=== PATIENT | male | born 1975 | race Caucasian/White ===

== ENCOUNTER 2017-10-21 08:19 | Emergency (ER) | payer MEDICAID ==
[~2017-10-21] VITALS: Ht 188 cm; Wt 190.5 kg
[2017-10-21] MEDS ORDERED: BENZ-16 PO (09:15)
[2017-10-21] MEDS ORDERED: AZIT250T PO (09:15)
[2017-10-21 09:25] VITALS: BP 159/85
== END 2017-10-21 09:26 | disposition home or self-care (01) ==
LOC: ER 08:20
DX: J20.9 Acute bronchitis, unspecified (principal); Z88.1 Allergy status to other antibiotic agents
CPT/HCPCS: 99283

== ENCOUNTER 2021-10-04 11:10 | Outpatient (CLI) | payer MEDICAID ==
[~2021-10-04 11:10] MED LIST: AZIT250T PO
== END 2021-10-04 23:59 | disposition home or self-care (01) ==
LOC: CARD DIAG 11:10
PROVIDERS: ATTEND Physician Assistant
DX: I05.8 Other rheumatic mitral valve diseases (principal); R60.0 Localized edema; E11.9 Type 2 diabetes mellitus without complications
CPT/HCPCS: 93306

== ENCOUNTER 2023-03-31 10:01 | Day surgery (SDC) | payer MEDICAID ==
[2023-03-28 09:53] LABS: BASOPHILS # (AUTO) 0.1 X10'3 (0-0.2); BASOPHILS % (AUTO) 0.9 % (0-1); EOSINOPHILS # (AUTO) 0.2 X10'3 (0-0.9); EOSINOPHILS % (AUTO) 2.8 % (0-6); HEMATOCRIT 40.3 % (42.0-52.0); HEMOGLOBIN 13.3 g/dl (14.0-17.9); LYMPHOCYTES % (AUTO) 25.6 % (21-51); MEAN CORPUSCULAR HEMOGLOBIN 26.2 PG (27.0-31.0); MEAN CORPUSCULAR HGB CONC 33.1 g/dL (33.0-36.5); MEAN CORPUSCULAR VOLUME 79.4 FL (78-98); MEAN PLATELET VOLUME 7.8 FL (7.4-10.4); MONOCYTES # (AUTO) 0.5 X10'3 (0-0.9); MONOCYTES % (AUTO) 6.9 % (2-12); NEUTROPHILS # (AUTO) 4.9 X10'3 (1.8-7.7); NEUTROPHILS % (AUTO) 63.8 % (42-75); PLATELET COUNT 388 X10'3 (140-440); RED BLOOD COUNT 5.08 X10'6 (4.70-6.10); RED CELL DISTRIBUTION WIDTH 14.7 % (11.5-14.5); WHITE BLOOD COUNT 7.7 X10'3 (4.5-11.0)
[2023-03-28 10:05] LABS: APTT 29 SECONDS (22-32)
[2023-03-28 10:06] LABS: ALBUMIN 3.5 G/DL (3.4-5.0); ANION GAP 11 (8-16); BLOOD UREA NITROGEN 11 MG/DL (7-18); BUN/CREATININE RATIO 11.2 (10.0-20.0); CALCIUM 8.9 MG/DL (8.5-10.1); CHLORIDE 100 MMOL/L (99-107); CHOL/HDL RATIO 3.5 (0.00-4.99); CHOLESTEROL 155 MG/DL (0-200); CREATININE 0.98 MG/DL (0.60-1.10); GLUCOSE 132 MG/DL (70-104); HDL CHOLESTEROL 44 MG/DL (35-60); LDL CHOLESTEROL 86 MG/DL (50-100); POTASSIUM 4.2 MMOL/L (3.5-5.1); SODIUM 138 MMOL/L (135-145); TOTAL CARBON DIOXIDE 27.5 MMOL/L (24-32); TRIGLYCERIDES 227 MG/DL (20-135); eGFR 81 ML/MIN
[~2023-03-31] VITALS: Ht 190.5 cm; Wt 210.8 kg
[2023-03-31] VITALS (8 sets, daily range): BP systolic 113–165; BP diastolic 56–98; PULSE 85–89; RESP 14–18; TEMP 98; O2SAT 94–99
[2023-03-31] MEDS ORDERED: normal saline 1,000 ML IV SCH (10:30)
[2023-03-31] MEDS ORDERED: diphenhydrAMINE 25mg capsule PO PRN (10:30)
[2023-03-31] MEDS ORDERED: LORazepam 0.5 MG tablet PO PRN (10:30)
[2023-03-31] MEDS ORDERED: sodium bicarbonate 1meq/ml syr 150 ML in dextrose 5%-water 1,000 ML IV ONE (10:30)
[2023-03-31] MEDS ORDERED: METF-438 PO (10:35)
[2023-03-31] MEDS ORDERED: ASPI-1397 PO (10:35)
[2023-03-31] MEDS ORDERED: FURO20TA4 PO (10:35)
[2023-03-31] MEDS ORDERED: ENAL-79 PO (10:35)
[2023-03-31] MEDS ORDERED: POTA-192 PO (10:35)
[2023-03-31] MEDS ORDERED: BACL10TA2 PO (10:35)
[2023-03-31] MEDS ORDERED: verapamil 2.5 mg/ml inj IV ONE (11:27)
[2023-03-31] MEDS ORDERED: iohexol 350MG/ML 100ml bottle IV ONE (11:27)
[2023-03-31] MEDS ORDERED: fentaNYL/PF 50MCG/1 ML 2ML syringe ONE (11:27)
[2023-03-31] MEDS ORDERED: nitroGLYCERIN-Tridil 50MG/D5W 250 ML IV ONE (11:27)
[2023-03-31] MEDS ORDERED: heparin 1,000unit/ml 10ml vial 10 ML ONE (11:27)
[2023-03-31] MEDS ORDERED: LIDOcaine 1% (10mg/ml) 2ml vial ONE (11:27)
[2023-03-31] MEDS ORDERED: midazolam 1 mg/ML 2ml injection ONE (11:27)
[2023-03-31] MEDS ORDERED: HYDROcodone/acetaminophen 10/325mg tab PO PRN (14:00)
[2023-03-31] MEDS ORDERED: HYDROcodone/acetaminophen 5mg/325mg tablet PO PRN (14:00)
== END 2023-03-31 15:40 | disposition home or self-care (01) ==
LOC: SSTAY O 10:01
PROVIDERS: ATTEND Student in an Organized Health Care Education/Training Program
DX: R94.39 Abnormal result of other cardiovascular function study (principal); I25.10 Atherosclerotic heart disease of native coronary artery without angina pectoris; I10 Essential (primary) hypertension; E78.5 Hyperlipidemia, unspecified; E11.9 Type 2 diabetes mellitus without complications; G47.33 Obstructive sleep apnea (adult) (pediatric); E66.9 Obesity, unspecified; Z68.43 Body mass index [BMI] 50.0-59.9, adult; Z79.84 Long term (current) use of oral hypoglycemic drugs; Z79.82 Long term (current) use of aspirin; Z79.899 Other long term (current) drug therapy; Z79.01 Long term (current) use of anticoagulants; Z88.0 Allergy status to penicillin
CPT/HCPCS: 36415; 80048; 80061; 82948; 85025; 85610; 85730; 93005; 93458; 99152; 99153; J1644; J2250; J3010; J3490; J7030; Q0163; Q9967; A6258; A6449; C1894

== ENCOUNTER 2025-05-29 11:38 | Inpatient (IN) | payer MEDICAID ==
[~2025-05-29] VITALS: Ht 188 cm; Wt 214.0 kg
[~2025-05-29 11:38] MED LIST changes: +ASPI-1397 PO; -AZIT250T PO; +ENAL-79 PO; +FURO20TA4 PO; +METF-438 PO; +POTA-192 PO
--- NOTE | 2025-05-29 11:57 | Physician Documentation ---
History of Present Illness ~ Chief Complaint: Wound Stated Complaint: BILATERAL FOOT SWELLING Time Seen by MD: 11:56 Mode of Arrival: EMS HPI This is a 50-year-old male with a history of MRSA, obstructive sleep apnea, diabetes, hypertension and morbid obesity presenting with fever, chills, blistering and then scabbing rash and left foot pain. He developed shaking chills four days ago followed by nausea and vomiting and then a rash with blisters on his left calf symptom onset May 11. He has seen his primary care provider, and is currently in the midst of a course of doxycycline x1 week. He has been applying topical mupirocin. He denies chest pain, diarrhea, abd pain, but admits to chronic dyspnea due to his weight. He admits that he has felt quite unwell for several days but was reluctant to come to the ER. His daughter encouraged him to call 911 today and he was brought by EMS. His main complaint today is inability to bear weight on left foot due to significant worsening of pain when he tries to do so. Tetanus within 5 years?: Yes Medication Reconciliation Allergies: Coded Allergies: amoxicillin (Unverified Allergy, Unknown, rash and can't breath, 05/29/25) Scheduled Aspirin (Aspirin EC), 1 TAB PO DAILY, (Reported) Enalapril Maleate (Enalapril Maleate), 1 TAB PO DAILY, (Reported) Furosemide (Furosemide), 1 TAB PO BID, (Reported) Metformin HCl (Metformin HCl), 1 TAB PO BID, (Reported) Potassium Chloride (Klor-Con), 1 TAB PO DAILY, (Reported) Past Medical History Past Medical History: No Pertinent History Past Surgical History: noncontributory Lives In: Home Occupation: employed Review of Systems ROS As stated above in the HPI, otherwise all systems are reviewed and negative. Physical Exam Vital Signs: Temperature: 97.5, Source: Oral, Heart Rate: 92, Respiratory Rate: 18, BP: 159/75, Pulse Oximetry: 97, Weight: 214.000 Oxygen Flow Rate: 0 Physical Exam General: Alert, no apparent distress. Neck: Full range of motion. Respiratory: Lungs clear, no respiratory distress. Chest: No accessory muscle use. Cardiovascular: Regular rate and rhythm, no murmurs. Gastrointestinal: Soft, nontender, nondistended. Bowels sounds present. Extremities: Reduced/painful ROM left ankle. TTP of left medial malleolus without noted deformity, open areas, or erythema to this site. Neurologic: Oriented x4. Psychiatric: Normal mood and affect. Skin: Normal color, warm and dry. Edema to BLE, worse on left. Erythema with scabbing up left inside calf and thigh. Progress Results/Orders Results/Orders Orders - MADDISON XIONG PRACTICE MANAGEMENT CONSULTANT Urinalysis, Cult If Indicated (05/29/25 12:04) Culture Blood (05/29/25 12:04) Chest,Single View (05/29/25 12:04) * Iv Access / Saline Lock * (05/29/25 12:04) Foot, Complete (3vw Min) (05/29/25 12:14) Tib/Fib (05/29/25 12:14) 75g Carb Controlled (05/29/25 Dinner) Ceftriaxone/P1d-Ncdnzeax 1gm (Rocephin 1 (05/29/25 13:30) Page Hospitalist (05/29/25 13:29) Vancomycin/Ns 1 Gm Add-Lewellen (Vancomyc (05/29/25 14:00) Non Formulary (05/30/25 13:30) Vancomycin,Trough (05/30/25 13:30) Completed Orders - MADDISON XOING PRACTICE MANAGEMENT CONSULTANT Electrocardiogram (05/29/25 12:04) Cbc/Diff (05/29/25 12:04) MG (05/29/25 12:04) Chest,Single View (05/29/25 12:04) Procalcitonin (05/29/25 12:04) Lacticsepsis (05/29/25 12:04) CMP (05/29/25 12:04) Hs Troponin I W Calculations (05/29/25 12:04) PBNP (05/29/25 12:04) C-Reactive Protein (05/29/25 12:04) Normal Saline 1000ml (0.9% Sodium Chlori (05/29/25 12:05) Foot, Complete (3vw Min) (05/29/25 12:14) Tib/Fib (05/29/25 12:14) ESR (05/29/25 12:15) Vancomycin*Pharmacy To Dose* (Vancomycin (05/29/25 13:30) Medications Received in ER Medications (Trade) Dose Ordered Sig/Heather Route PRN Reason Start Time Stop Time Status Last Admin Dose Admin Sodium Chloride 1,000 ml @ 1,000 mls/hr ONCE ONCE IV 05/29/25 12:05 05/29/25 13:04 DC 05/29/25 12:36 1,000 MLS/HR Vital Signs 05/29/25 05/29/25 05/29/25 11:41 11:50 12:39 Temp 97.5 Pulse 92 97 Resp 18 18 B/P (MAP) 159/75 147/80 (102) Pulse Ox 97 100 O2 Flow Rate 0 0 Laboratory Tests Test 05/29/25 12:30 White Blood Count 10.2 Red Blood Count 3.63 L Hemoglobin 10.1 L Hematocrit 30.0 L Mean Corpuscular Volume 82.6 Mean Corpuscular Hemoglobin 27.9 Mean Corpuscular Hemoglobin Concent 33.7 Red Cell Distribution Width 15.1 H Platelet Count 529 H Mean Platelet Volume 7.6 Neutrophils (%) (Auto) 76.3 H Lymphocytes (%) (Auto) 14.1 L Monocytes (%) (Auto) 8.7 Eosinophils (%) (Auto) 0.2 Basophils (%) (Auto) 0.7 Neutrophils # (Auto) 7.8 H Lymphocytes # (Auto) 1.4 Monocytes # (Auto) 0.9 Eosinophils # (Auto) 0.0 Basophils # (Auto) 0.1 CBC Comment Erythrocyte Sedimentation Rate 106 H Sodium Level 132 L Potassium Level 4.1 Chloride Level 98 L Carbon Dioxide Level 28.3 Anion Gap 6 L Blood Urea Nitrogen 9 Creatinine 0.92 Estimated GFR/1.73 m2 86 BUN/Creatinine Ratio 9.8 L Glucose Level 122 H Lactic Acid Level 0.9 Calcium Level 8.6 Magnesium Level 1.7 Total Bilirubin 0.7 Aspartate Amino Transf (AST/SGOT) 22 Alanine Aminotransferase (ALT/SGPT) 23 Alkaline Phosphatase 62 Troponin I High Sensitivity 7 C-Reactive Protein 24.99 H Pro-B-Type Natriuretic Peptide 548 H Total Protein 9.4 H Albumin 2.1 L Globulin 7.3 H Albumin/Globulin Ratio 0.3 L Procalcitonin 0.10 Chemistry Comments EKG/XRAY/CT/US/VASC/MRI EKG : Additional Comment 1139 EKG interpreted to show RSR rate of 94. No ectopy. No St segment elevation.Occasional PAC. QTC 438 ms. Bone/Soft Tissue X-Ray (Spine) : Additional Comment [address] [facility] [address] DIAGNOSTIC RADIOLOGY Patient: SEDRICK PRIEST Medical Record: [id number] [facility] : 1975, Age: 50 Sex: Male Location: ER Patient Status: [facility] ER Service Date/Time: 05/29/25/ 1214 Ordering Physician: MADDISON XIONG NP Exam: TIB/FIB 2 VWS DI TIB/FIB 2 VWS, INDICATION: cannot bear weight, swelling, infection TECHNICAL DATA: Frontal and lateral views were obtained of the left leg. COMPARISON: None FINDINGS: There is no osseous abnormality. Soft tissues are normal. IMPRESSION: No acute fracture or dislocation. Electronically Signed by:AZEEM LUNSFORD MD Date & Time: 05/29/251302 Dictated by: AZEEM LUNSFORD MD Dictation date and time: 05/29/25 130 Primary Care Provider: NO PRIMARY CARE PROVIDER cc: MADDISON XIONG PRACTICE MANAGEMENT CONSULTANT ~ Bone/Soft Tissue X-Ray (Ext.) : Additional Comment [address] [facility] [address] [facility]STIC [facility]Y Patient: SEDRICK PRIEST Medical Record: [id number] [facility] : 1975, Age: 50 Sex: Male Location: ER Patient Status: REG ER Service Date/Time: 05/29/25/ 1214 Ordering Physician: MADDISON XIONG PRACTICE MANAGEMENT CONSULTANT Exam: FOOT, COMPLETE (3VW MIN) DI FOOT, COMPLETE (3VW MIN), INDICATION: cannot bear weight, swelling, infection TECHNICAL DATA: Frontal, oblique and lateral views were obtained of the left foot. COMPARISON: DI TIB/FIB 2 VWS on DOS: 05/29/25 FINDINGS: No fracture is identified. Joint spaces are maintained. Alignment is anatomic. The hallux sesamoids appear normal. Soft tissues are swollen. IMPRESSION: No acute fracture or dislocation of the left foot. Electronically Signed by:AZEEM LUNSFORD MD Date & Time: 05/29/251307 Dictated by: AZEEM LUNSFORD MD Dictation date and time: 05/29/251307 Primary Care Provider: NO PRIMARY CARE PROVIDER cc: MADDISON XIONG PRACTICE MANAGEMENT CONSULTANT ~ [address] [address] DIAGNOSTIC RADIOLOGY Patient: SEDRICK PRIEST Medical Record: [id number] [facility] : 1975, Age: 50 Sex: Male Location: ER Patient Status: REG ER Service Date/Time: 05/29/25/ 1204 Ordering Physician: MADDISON XIONG PRACTICE MANAGEMENT CONSULTANT Exam: CHEST,SINGLE VIEW DI CHEST,SINGLE VIEW, HISTORY: SEPSIS COMPARISON: None None TECHNICAL DATA: 1 view of the chest was obtained. FINDINGS: Lines and tubes: None Cardiomediastinal silhouette: prominent Pulmonary vasculature: promiennt Lung expansion: normal Lung airspace: normal Lung interstitium: normal Pleura: normal Pneumothorax: no Bones: Unremarkable Other: no IMPRESSION: Cardiomegaly with pulmonary vascular congestion. Electronically Signed by:AZEEM LUNSFORD MD Date & Time: 05/29/25 1307 Dictated by: AZEEM LUNSFORD MD Dictation date and time: 05/29/25 1246 Primary Care Provider: NO PRIMARY CARE PROVIDER cc: MADDISON XIONG PRACTICE MANAGEMENT CONSULTANT ~ Medical Decision Making Differential Dx:Considerations: Include: Abscess, Cellulitis Additional Comment Differentials: Cellulitis/erysipelas of LLE, diabetic soft tissue/foot infection, Venous stasis dermatitis, DVT, Charcot arthropathy, necrotizing fasciitis of LLE, osteomyelitis of left foot/tibia, septic arthritis of left foot/ankle are all considered. Plan: Labs including septic and inflammatory markers, blood cultures, xray of LLE as initial workup. NS bolus x one liter. Initiate antibiotics after labs are drawn. Vancomycin and Cefazolin initiated. No evidence of fractures or dislocations on xrays. CRP markedly elevated. No lactic acidosis, procalcitonin normal. Hospitalist consulted to evaluate for admission. Departure Time of Disposition: 13:55 Disposition: HOME / SELF CARE / HOMELESS Impression: Primary Impression: Wound cellulitis Additional Impression: Hyponatremia Referrals: NO PRIMARY CARE PROVIDER (PCP) Signature Scribe Signature: x Attestation: The note accurately reflects work and decisions made by me.Maddison Melissa NP 05/29/25 12:10 MADDISON XIONG NP May 29, 2025 11:57
--- NOTE | 2025-05-29 12:06 | ELECTROCARDIOGRAPH REPORT ---
[facility] Test Date: 2025-05-29 Test Time: 11:39:29 Pat Name: SEDRICK PRIEST Department: EMERGENCY ROOM Room: ORTHO [facility] Gender: M Well Blower: [place] : 1975 Requested By: ACACIA XIONG Order Number: [id number] Reading MD: Dr. Alex [facility] Measurements Intervals Brandon Rate: 94 P: 27 OK: 180 QRS: 64 QRSD: 85 T: 36 QT: 350 QTc: 438 Interpretive Statements Sinus rhythm Multiple premature complexes, vent & supraven Low voltage, precordial leads Electronically Signed On 06-02-2025 21:45:[address] Alex [facility] Please click the below link to view image of tracing.
[2025-05-29] MEDS: normal saline 1000ml 1,000 ML IV ONE (12:36)
[2025-05-29 12:49] LABS: MEAN PLATELET VOLUME 7.6 FL (7.4-10.4); RED CELL DISTRIBUTION WIDTH 15.1 % (11.5-14.5)
--- NOTE | 2025-05-29 13:06 | RADIOLOGY REPORT ---
DI TIB/FIB 2 VWS, INDICATION: cannot bear weight, swelling, infection TECHNICAL DATA: Frontal and lateral views were obtained of the left leg. COMPARISON: None FINDINGS: There is no osseous abnormality. Soft tissues are normal. IMPRESSION: No acute fracture or dislocation.
--- NOTE | 2025-05-29 13:09 | RADIOLOGY REPORT ---
DI CHEST,SINGLE VIEW, HISTORY: SEPSIS COMPARISON: None None TECHNICAL DATA: 1 view of the chest was obtained. FINDINGS: Lines and tubes: None Cardiomediastinal silhouette: prominent Pulmonary vasculature: promiennt Lung expansion: normal Lung airspace: normal Lung interstitium: normal Pleura: normal Pneumothorax: no Bones: Unremarkable Other: no IMPRESSION: Cardiomegaly with pulmonary vascular congestion.
--- NOTE | 2025-05-29 13:10 | RADIOLOGY REPORT ---
DI FOOT, COMPLETE (3VW MIN), INDICATION: cannot bear weight, swelling, infection TECHNICAL DATA: Frontal, oblique and lateral views were obtained of the left foot. COMPARISON: DI TIB/FIB 2 VWS on DOS: 05/29/25 FINDINGS: No fracture is identified. Joint spaces are maintained. Alignment is anatomic. The hallux sesamoids appear normal. Soft tissues are swollen. IMPRESSION: No acute fracture or dislocation of the left foot.
[2025-05-29 13:14] LABS: CREATININE 0.92 MG/DL (0.60-1.10); PRO BRAIN NATRIURETIC PEPTIDE 548 PG/ML (0-125); TOTAL CARBON DIOXIDE 28.3 MMOL/L (24-32); eCRCL 109 ML/MIN; eGFR 86 ML/MIN
--- NOTE | 2025-05-29 13:43 | HISTORY AND PHYSICAL ---
History & Physical Providers to Chief complaint, left lower extremity pain swelling redness ~ History of Present Illness Reason for Admit\Complaint: As above History of Present Illness This is a 50-year-old male with a history of MRSA, obstructive sleep apnea, on CPAP at home, diabetes, on p.o. medications, hypertension and morbid obesity BMI 60, history of anemia hemoglobin 10.1, thrombocytosis, CHF ejection fraction 70% 2020, hypoalbuminemia, gait disorder unable to ambulate independently, presented today to emergency department chief complaint left lower extremity pain redness swelling; in addition this is the patient who years presenting with fever, chills, blistering and then scabbing rash and left foot pain. He developed shaking chills four days ago followed by nausea and vomiting and then a rash with blisters on his left calf symptom onset May 11. He has seen his primary care provider, and is currently in the midst of a course of doxycycline x1 week. He has been applying topical mupirocin. He denies chest pain, diarrhea, abd pain, but admits to chronic dyspnea due to his weight. He admits that he has felt quite unwell for several days but was reluctant to come to the ER. His daughter encouraged him to call 911 today and he was brought by EMS. His main complaint today is inability to bear weight on left foot due to significant worsening of pain when he tries to do so. In emergency department patient was evaluated by medical provider, was diagnosed with left lower extremity cellulitis, decision was made to admit patient for further evaluation and treatment, patient was started on IV antibiotics. No additional complaint or concern Allergies: Coded Allergies: amoxicillin (Unverified Allergy, Unknown, rash and can't breath, 05/29/25) Active prescriptions I reviewed reconciled Home Medications Home Medications Active Reported Metformin HCl 1,000 Mg Tablet 1 Tab PO BID Enalapril Maleate 20 Mg Tablet 1 Tab PO DAILY Aspirin EC (Aspirin) 81 Mg Tablet.dr 1 Tab PO DAILY Klor-Con (Potassium Chloride) 10 Meq Tab.prt.sr 1 Tab PO DAILY Furosemide 20 Mg Tablet 1 Tab PO BID Past Medical History Past Medical History As in HPI Past Surgical History Surgical History Comment As in HPI Past Social History Social History Comment Deny illicit drug abuse tobacco alcohol use live with the family good social support Health Maintenance Health Maintenance Noncontributory ROS ROS Constitutional : no fever , no chills, or weakness. No diaphoresis. Allergic/Immunologic, no lymphadenopathy, no hives, no skin eruptions. Eyes, no recent visual changes, no eye pain, no photophobia. Ears, nose, mouth, throat, no sore throat, no nosebleed, no ear pain. Cardiovascular, no palpitations, skipped beats, chest pain, no peripheral edema, Respiratory, no dyspnea, orthopnea, cough, hemoptysis, chest wall pain. Gastrointestinal, no abdominal pain, nausea, vomiting, constipation or diarrhea. : no dysuria, hematuria, pelvic pain, urethral d/c. Endocrine, no polyuria, polydipsia, recent unintentional weight gain or loss. Hematologic/Lymphatic, no petechiae, no enlarged lymph nodes, no bone pain. Integumentary, no rash, no skin lesions, Musculoskeletal, no muscle aches, or pain, no muscle cramps, positive for left lower extremity redness pain swelling Neurological, no dizziness, no headache, no syncope, no paresthesia. Psychiatric, no delusions, visual hallucinations, or hearing hallucinations. ROS - in rest is as in HPI. Exam Vitals: Vital Signs Date Time Temp Pulse Resp B/P (MAP) Pulse Ox O2 Delivery O2 Flow Rate FiO2 05/29/25 12:39 97 18 147/80 (102) 100 0 05/29/25 11:41 97.5 Vital signs, stable ,afebrile. Pulse Oximetry reflects adequate oxygenation. BMI is 60, weight 214 kg General: well developed, well nourished. Awake , alert, and oriented x4, resting comfortably in the bed, in no acute distress . Skin: Warm, dry, no pallor, no rash or petechiae. HEENT: Atraumatic, normocephalic, EOMI, anicteric sclera B; pink conjunctiva; PERRLA, normal oropharynx, moist oral and nasal mucosa. Tympanic membrane , nose , throat clear. Neck: Trachea midline. Supple, full range of motion, no JVD, bruit , hepatojugular reflex , lymphadenopathy or masses, or other lesions Cardiac: Regular rhythm, regular rate no murmurs, rubs, or gallops. Normal S1 and S2, no S3 noticed. PMI is normal. Respiratory: Equal breath sounds bilaterally, no tachypnea; lungs clear to auscultation bilaterally, no wheezing ,rub or rales, or crackles. Chest wall is symmetric and without deformity. No signs of trauma. Chest wall is nontender. No signs of respiratory distress. Resonance is normal upon percussion bilaterally. Gastrointestinal: Abdomen symmetric, non-distended, soft, non-tender, normal bowel sounds x4 quadrant, normoactive, no hepatosplenomegaly , no masses , no bruit, no flank pain bilaterally. No voluntary guarding, rebound, or rigidity. No tenderness to percussion. No pulsatile masses. Equal femoral pulses. No Giraldo's sign or McBurney point tenderness. Back; no CVA tenderness bilaterally, no deformities. Neck and back are without deformity as well. No tenderness noted on palpation of the spinous processes. Spinous processes are midline. Cervical, thoracic, and lumbar paraspinal muscles are not tender and are without spasm. : normal external genitalia, without lesions, swelling, masses or tenderness. Musculoskeletal: Extremities, normal range of motion, non-tender, muscle strength 5/5 x 4. Negative Homans signs bilaterally on lower extremity. Distal pulses full symmetrical, no clubbing, cyanosis , edema. Locally, left lower extremity multiple erosive lesions brown in color, skin red hot to touch CVA tender to palpation, no subcutaneous emphysema or crepitation, neurovascular grossly intact, unable to ambulate independently secondary to severe pain left lower extremity. Neurological: Speech is clear, alert, and oriented x 4. No motor or sensory deficit, deep tendon reflexes normal, cerebellar intact. Cranial nerves II-XII intact. Psych: Alert and or appropriate, normal affect. Vascular: Good distal pulses, which are equal x4; capillary refill less than 2 seconds. Lymphatic, no lymphadenopathy. Diagnostic Data Last Recorded Lab Results: 05/29/25 1230 05/29/25 1230 Advance Care Planning Advanced Care plannin - 30 Minutes Additional Plan Assessment Left lower extremity cellulitis Left lower extremity erosive dermatitis Hyponatremia Morbid obesity BMI 60 Thrombocytosis Anemia Hemoglobin 10.1 CHF in exacerbation diastolic, ejection fraction 70% 2021 Obstructive sleep apnea on home CPAP History of MRSA Gait disorder, unable to ambulate independent Diabetes mellitus type 2 poor control Hypertension fair control, hypoalbuminemia, chronic kidney disease Plan IV antibiotics, fluids keep patient well hydrated euvolemic Replace electrolytes PT evaluation and treatment Wound care consult Hyperglycemia sliding scale Additional lab work pending I reconciled home medications DVT gastropathy prophylaxis addressed Sepsis Screening Reassessment Date: May 29, 2025 Date of Service: May 29, 2025 Billing Provider: ZHANG GARCIA MD Common Visit Codes: [id number] INP/OBS CARE (HIGH) Secondary Visit Codes: [id number] CARE PLAN ADDL 30MIN ZHANG GARCIA MD May 29, 2025 13:43
[2025-05-29] MEDS: CefTRIAXone/D5W-Rocephin 1gm 50 ML IV ONE (14:04)
[2025-05-29] MEDS ORDERED: magnesium Cl slow-release 64mg tablet PO PRN (14:10)
[2025-05-29] MEDS ORDERED: mag hydrox/Alum hydrox/simeth 30ml oral suspension PO PRN (14:10)
[2025-05-29] MEDS ORDERED: bisacodyl 10mg suppository rectal RC PRN (14:10)
[2025-05-29] MEDS ORDERED: magnesium sulf-water 2g/50mL 50 ML IV PRN (14:10)
[2025-05-29] MEDS ORDERED: ondansetron/PF 4mg/2ml inj IV PRN (14:10)
[2025-05-29] MEDS ORDERED: potassium Cl 40MEQ/1/2NS 520ml 520 ML IV PRN (14:10)
[2025-05-29] MEDS ORDERED: morphine 4 MG/ML inj SYRINge IV PRN ×2 (14:10)
[2025-05-29] MEDS ORDERED: HYDROcodone/acetaminophen 5mg/325mg tablet PO PRN (14:10)
[2025-05-29] MEDS ORDERED: magnesium hydroxide 30ml (MOM) UD suspension PO PRN (14:10)
[2025-05-29] MEDS ORDERED: potassium Cl 20 mEq SR tablet PO PRN ×2 (14:10)
[2025-05-29] MEDS ORDERED: ondansetron 4mg rapidly disintigrating tab PO PRN (14:10)
[2025-05-29] MEDS ORDERED: magnesium sulf-water 4G/100mL 100 ML IV PRN (14:10)
[2025-05-29] MEDS ORDERED: acetaminophen 650mg rectal suppository RC PRN (14:10)
[2025-05-29] MEDS: vancomycin/NS 1 GM ADD-VANTAGE 250 ML IV SCH (14:22)
[2025-05-29] MEDS: normal saline 1000ml 1,000 ML IV SCH (14:23)
[2025-05-29] MEDS ORDERED: glucagon, human recombinant 1mg kit SUBCUT PRN (14:30)
[2025-05-29] MEDS ORDERED: dextrose 50%-water 50ml dispensing syringe IV PRN ×2 (14:30)
[2025-05-29] MEDS ORDERED: DEXTROSE 15 GM of carb/4 tabs (each vial/BOTTLE has 4 tablets) PO PRN ×2 (14:30)
[2025-05-29 14:39] LABS: APTT 29 SECONDS (22-32); INR 1.2 INR
[2025-05-29 14:56] LABS: PHOSPHORUS 3.5 MG/DL (2.3-4.5)
[2025-05-29 15:19] LABS: LEUKOCYTE ESTERASE ,URINE NEGATIVE (Neg); NITRITES, URINE NEGATIVE (Neg); OCCULT BLOOD,URINE MODERATE (Neg)
[2025-05-29 15:22] LABS: UA COLLECTION TYPE NON-SPECIFIED
[2025-05-29 15:28] LABS: MUCUS STRANDS MODERATE /LPF (Neg); SQUAMOUS EPITHELIAL CELL,UR MODERATE /LPF (FEW)
[2025-05-29] MEDS ORDERED: METO-395 PO (15:33)
[2025-05-29] MEDS ORDERED: TIRZ5PEN3 INJ (15:33)
[2025-05-29] MEDS ORDERED: DOXY-460 PO (15:33)
[2025-05-29] MEDS ORDERED: POTA PO (15:33)
[2025-05-29] MEDS ORDERED: FLUT1BLS3 PO (15:33)
[2025-05-29] MEDS: INSULIN LISPRO 100 UNIT/ML INSULN.PEN MULTI-DOSE SQ SCH (17:00)
[2025-05-29] MEDS: heparin, porcine 5000 units/ml vial SQ SCH (17:27)
[2025-05-29 19:00] VITALS: RESP 16; O2SAT 97
[2025-05-29] MEDS ORDERED: VANCOMYCIN 1GM 200ML H20 (PEG) 200 ML IV SCH (20:00)
[2025-05-29] MEDS: docusate sod 100mg capsule PO SCH (20:00)
[2025-05-29] MEDS: K and/or MAG REPLACEMENT MC SCH (20:00)
[2025-05-29] MEDS: insulin glargine (Lantus) pen - multi-dose SQ SCH (21:00)
[2025-05-29 22:00] VITALS: BP 132/67; PULSE 104; TEMP 97.3; O2SAT 95
[2025-05-29 22:27] VITALS: PULSE 108; RESP 18; O2SAT 96
[2025-05-30] VITALS (9 sets, daily range): BP systolic 121–144; BP diastolic 55–75; PULSE 84–104; RESP 16–26; TEMP 97.3–98.3; O2SAT 94–99
[2025-05-30] MEDS: HYDROcodone/acetaminophen 10/325mg tab PO PRN (00:06)
[2025-05-30 06:19] LABS: MEAN PLATELET VOLUME 7.7 FL (7.4-10.4); RED CELL DISTRIBUTION WIDTH 15.2 % (11.5-14.5)
[2025-05-30 06:58] LABS: CHOL/HDL RATIO 2.9 (0.00-4.99); CREATININE 0.94 MG/DL (0.60-1.10); LDL CHOLESTEROL 66 MG/DL (50-100); TOTAL CARBON DIOXIDE 29.1 MMOL/L (24-32); eCRCL 107 ML/MIN; eGFR 84 ML/MIN
[2025-05-30] MEDS: CefTRIAXone 2gm/D5W 50ml BAG 50 ML IV SCH (08:29)
[2025-05-30] MEDS: pantoprazole 40mg Tablet.DR PO SCH (08:30)
[2025-05-30] MEDS: VANCOMYCIN LEVEL IV ONE (13:30)
[2025-05-30] MEDS ORDERED: POTA8CAP20 PO (15:26)
[2025-05-30] MEDS: VANCOmycin 1250MG/NS 250ml Bag 250 ML IV SCH (17:28)
--- NOTE | 2025-05-30 18:17 | PROGRESS NOTE ---
Daily Progress Note Providers to CC ~ feels better today less pain redness redness in the left lower extremity Central Line/PICC still needed: No Arango-Non Protocol Arango Indications Met/Not Met: F/C Indications Not Met Antibiotic Timeout Antibiotic Ordered?: Yes MRSA Education MRSA Education Provided to pt: Yes Subjective As above Objective Vital Signs Date Time Temp Pulse Resp B/P (MAP) Pulse Ox O2 Delivery O2 Flow Rate FiO2 05/30/25 11:49 18 95 Room Air 05/30/25 10:00 97.8 100 121/55 (77) 05/30/25 08:00 0.0 05/30/25 04:04 21 Vital signs, stable ,afebrile. Pulse Oximetry reflects adequate oxygenation. General: well developed, well nourished. Awake , alert, and oriented x4, resting comfortably in the bed, in no acute distress . Skin: Warm, dry, no pallor, no rash or petechiae. HEENT: Atraumatic, normocephalic, EOMI, anicteric sclera B; pink conjunctiva; PERRLA, normal oropharynx, moist oral and nasal mucosa. Tympanic membrane , nose , throat clear. Neck: Trachea midline. Supple, full range of motion, no JVD, bruit , hepatojugular reflex , lymphadenopathy or masses, or other lesions Cardiac: Regular rhythm, regular rate no murmurs, rubs, or gallops. Normal S1 and S2, no S3 noticed. PMI is normal. Respiratory: Equal breath sounds bilaterally, no tachypnea; lungs clear to auscultation bilaterally, no wheezing ,rub or rales, or crackles. Chest wall is symmetric and without deformity. No signs of trauma. Chest wall is nontender. No signs of respiratory distress. Resonance is normal upon percussion bilaterally. Gastrointestinal: Abdomen symmetric, non-distended, soft, non-tender, normal bowel sounds x4 quadrant, normoactive, no hepatosplenomegaly , no masses , no bruit, no flank pain bilaterally. No voluntary guarding, rebound, or rigidity. No tenderness to percussion. No pulsatile masses. Equal femoral pulses. No Giraldo's sign or McBurney point tenderness. Back; no CVA tenderness bilaterally, no deformities. Neck and back are without deformity as well. No tenderness noted on palpation of the spinous processes. Spinous processes are midline. Cervical, thoracic, and lumbar paraspinal muscles are not tender and are without spasm. : normal external genitalia, without lesions, swelling, masses or tenderness. Musculoskeletal: Extremities, normal range of motion, non-tender, muscle strength 5/5 x 4. Negative Homans signs bilaterally on lower extremity. Distal pulses full symmetrical, no clubbing, cyanosis , edema. Locally, left lower leg plus three edema red tender to palpation with scattered covering crusts Neurological: Speech is clear, alert, and oriented x 4. No motor or sensory deficit, deep tendon reflexes normal, cerebellar intact. Cranial nerves II-XII intact. Psych: Alert and or appropriate, normal affect. Vascular: Good distal pulses, which are equal x4; capillary refill less than 2 seconds. Lymphatic, no lymphadenopathy. Result Diagram: 05/30/2514 05/30/2514 Coagulation Studies Laboratory Tests Test 05/29/25 12:30 Prothrombin Time 11.7 SECONDS (9.0-12.0) INR International Normalized Ratio 1.2 INR Activated Partial Thromboplast Time 29 SECONDS (22-32) Coagulation Comments Problem\Assessment\Plan Assessment Left lower extremity cellulitis Left lower extremity erosive dermatitis Hyponatremia Morbid obesity BMI 60 Thrombocytosis Anemia Hemoglobin 10.1 CHF in exacerbation diastolic, ejection fraction 70% 2021 Obstructive sleep apnea on home CPAP History of MRSA Gait disorder, unable to ambulate independent Diabetes mellitus type 2 poor control Hypertension fair control, hypoalbuminemia, chronic kidney disease Plan IV antibiotics, fluids keep patient well hydrated euvolemic UTI Replace electrolytes PT evaluation and treatment Wound care consult Hyperglycemia sliding scale Additional lab work pending I reconciled home medications DVT gastropathy prophylaxis addressed Sepsis Screening Reassessment Date: May 30, 2025 Date of Service: May 30, 2025 Billing Provider: ZHANG GARCIA MD Common Visit Codes: [id number] INP/OBS CARE(HIGH) ZHANG GARCIA MD May 30, 2025 18:17
[2025-05-31] VITALS (8 sets, daily range): BP systolic 132–177; BP diastolic 66–94; PULSE 89–101; RESP 16–29; TEMP 97.9–98.5; O2SAT 96–99
[2025-05-31 05:39] LABS: CREATININE 0.86 MG/DL (0.60-1.10); TOTAL CARBON DIOXIDE 29.9 MMOL/L (24-32); eCRCL 117 ML/MIN; eGFR > 90 ML/MIN
[2025-05-31 05:44] LABS: MEAN PLATELET VOLUME 8.1 FL (7.4-10.4); RED CELL DISTRIBUTION WIDTH 15.3 % (11.5-14.5)
--- NOTE | 2025-05-31 11:26 | RADIOLOGY REPORT ---
CLINICAL INDICATION: cellulitis TECHNIQUE: Noncontrast CT of the lower extremity was performed. Sagittal and coronal reformatted images are provided. COMPARISON: DI TIB/FIB 2 VWS on DOS: 05/29/25 CT Dose: CTDI volume is 7.6 mGy. Dose-length product is 60.5 mGy*cm FINDINGS: No fracture or dislocation. No cortical destruction. There is soft tissue edema in the calf and foot. No fluid collection. Mildly prominent groin lymph nodes which may be reactive. IMPRESSION: 1. No acute osseous abnormality. 2. Soft tissue edema in the left lower extremity may reflect cellulitis. All CT scans at this medical facility are performed using dose modulation techniques as appropriate to a performed exam including the following: Automated exposure control was utilized; adjustment of the MA and/or KV according to patient size; and use of iterative reconstruction technique.
--- NOTE | 2025-05-31 12:31 | PROGRESS NOTE ---
Daily Progress Note Providers to CC ~ Antibiotic Timeout Antibiotic Ordered?: Yes Subjective No acute events overnight. Patient examined at bedside. No new complaints. Patient denies chest pain, sob, palpitations, abdominal pain, n/v/d. Vss, labs unremarkable. CT shows cellulitis without evidence of fluid collection. Objective Vital Signs Date Time Temp Pulse Resp B/P (MAP) Pulse Ox O2 Delivery O2 Flow Rate FiO2 05/31/25 06:00 98.5 97 18 147/66 (93) 97 Room Air 05/31/25 03:20 21 05/30/25 08:00 0.0 Result Diagram: 05/31/258 05/31/258 Physical Exam General: Generalized weakness, A&Ox 3, NAD HEENT: Normocephalic, PERRLA Neck: Supple, trachea midline, no JVD Chest: Clear to auscultation bilaterally Cardiovascular: RRR, S1&S2 GI: Soft and nontender Extremities: Scabbed with erythematous border in left thigh, tender, no drainage HAND IRONER: CN II-XII intact, no focal deficits Musculoskeletal: No paraspinal muscle tenderness, no muscle spasm Skin: Warm and intact Coagulation Studies Laboratory Tests Test 05/29/25 12:30 Prothrombin Time 11.7 SECONDS (9.0-12.0) INR International Normalized Ratio 1.2 INR Activated Partial Thromboplast Time 29 SECONDS (22-32) Coagulation Comments Problem\Assessment\Plan Patient comes in with acute onset left thigh pain x 2 weeks, failed outpatient management with doxycycline. Assessment & Plan Cellulitis, LLE, failed outpatient management Left lower extremity erosive dermatitis Hyponatremia Class III obesity Anemia, normocytic Chronic diastolic heart failure BRAVO History of MRSA Gait disorder, unable to ambulate independently NIDDM Hypertension Malnutrition, moderate -CT shows cellulitis without evidence of fluid collection -vanco, ceftriaxone, hyper/hypoglycemic protocol, wound care consult DVT/VTE prophylaxis: Heparin Code status: Full code Date of Service: May 31, 2025 Billing Provider: LISA OLIVAS Common Visit Codes: [id number] INP/OBS CARE(HIGH) LISA OLIVAS May 31, 2025 12:31
[2025-05-31] MEDS: VANCOMYCIN LEVEL IV ONE (15:30)
[2025-06-01] VITALS (8 sets, daily range): BP systolic 134–162; BP diastolic 57–76; PULSE 86–98; RESP 16–24; TEMP 97.1–99.9; O2SAT 92–97
[2025-06-01] MEDS: VANCOmycin 1250MG/NS 250ml Bag 250 ML IV SCH (00:03)
[2025-06-01 05:28] LABS: MEAN PLATELET VOLUME 7.7 FL (7.4-10.4); RED CELL DISTRIBUTION WIDTH 15.2 % (11.5-14.5)
[2025-06-01 05:46] LABS: CREATININE 0.79 MG/DL (0.60-1.10); TOTAL CARBON DIOXIDE 28.9 MMOL/L (24-32); eCRCL 127 ML/MIN; eGFR > 90 ML/MIN
--- NOTE | 2025-06-01 12:08 | PROGRESS NOTE ---
Daily Progress Note Providers to CC ~ Antibiotic Timeout Antibiotic Ordered?: Yes Subjective No acute events overnight. Patient examined at bedside. No new complaints, not in acute distress. Patient denies chest pain, sob, palpitations, abdominal pain, n/v/d. Vss, labs unremarkable. CT shows cellulitis without evidence of fluid collection. Hx MRSA cellulitis of right foot which is treated. Consulted ID Dr. Hernandez. Objective Vital Signs Date Time Temp Pulse Resp B/P (MAP) Pulse Ox O2 Delivery O2 Flow Rate FiO2 06/01/25 07:38 89 20 95 Room Air* 0 21 06/01/25 06:00 99.9 134/57 (82) Result Diagram: 06/01/2545806/01/25458 Physical Exam General: Generalized weakness, A&Ox 3, NAD HEENT: Normocephalic, PERRLA Neck: Supple, trachea midline, no JVD Chest: Clear to auscultation bilaterally Cardiovascular: RRR, S1&S2 GI: Soft and nontender Extremities: Scabbed with erythematous border in left thigh, tender, no drainage TRAM INSPECTOR: CN II-XII intact, no focal deficits Musculoskeletal: No paraspinal muscle tenderness, no muscle spasm Skin: Warm and intact Coagulation Studies Laboratory Tests Test 05/29/25 12:30 Prothrombin Time 11.7 SECONDS (9.0-12.0) INR International Normalized Ratio 1.2 INR Activated Partial Thromboplast Time 29 SECONDS (22-32) Coagulation Comments Problem\Assessment\Plan Patient comes in with acute onset left thigh pain x 2 weeks, failed outpatient management with doxycycline. Assessment & Plan Cellulitis, LLE, failed outpatient management Left lower extremity erosive dermatitis Hyponatremia Class III obesity Anemia, normocytic Chronic diastolic heart failure BRAVO History of MRSA, right foot Gait disorder, unable to ambulate independently NIDDM Hypertension Malnutrition, moderate -CT shows cellulitis without evidence of fluid collection -vanco, ceftriaxone, hyper/hypoglycemic protocol, wound care consult 06/01: continued on abx, consulted ID Dr. Hernandez DVT/VTE prophylaxis: Heparin Code status: Full code Date of Service: Jun 01, 2025 Billing Provider: LISA OLIVAS Common Visit Codes: [id number] INP/OBS CARE(HIGH) LISA OLIVAS Jun 01, 2025 12:08
[2025-06-01 12:45] LABS: % IRON SATURATION 13.0 % (11-46)
--- NOTE | 2025-06-01 14:16 | CONSULTATION REPORT - RESIDENT ---
Consult Providers to CC Resident Creating Document: DARNELL MCKEON, RES CC: RUEL VOGEL MD History of Present Illness Reason for Admit\Complaint: Left lower extremity ulcer History of Present Illness A 50-year-old male with PMH of DM, HTN, HLD presented to the ED in view of nonhealing ulcer present on the medial side of the left thigh since two weeks. Patient states that this also started as a rash that progressed to blisters and then gradual blackish necrotic discoloration present over the ulcer. Patient denies fever and chills. Patient endorses pain sharp in character , which is 5/10 in severity. Patient initially approached the primary care doctor who started the patient on a cephalosporin that the patient can not remember but states that the antibiotic starts with a C that did not improve his condition. Allergies: Coded Allergies: amoxicillin (Unverified Allergy, Unknown, rash and can't breath, 05/29/25) Home Medications Home Medications Active Reported Slow-K 8 Meq* (Potassium Chloride) 8 Meq Capsule.sa 1 Cap PO DAILY Metoprolol Succinate 25 Mg Tab.sr.24h 1 Tab PO DAILY Breo Ellipta 200-25 Mcg INH (Fluticasone/Vilanterol) 200 Mcg-25 Mcg/Dose Blst.w.dev 1 Puffs PO DAILY Zepbound (Tirzepatide) 5 Mg/0.5 Ml Pen.injctr 5 Mg INJ ONCE A WEEK Doxycycline Monohydrate 100 Mg Capsule 1 Cap PO BID Metformin HCl 1,000 Mg Tablet 1 Tab PO BID Enalapril Maleate 20 Mg Tablet 1 Tab PO DAILY Aspirin EC (Aspirin) 81 Mg Tablet.dr 1 Tab PO DAILY Furosemide 20 Mg Tablet 1 Tab PO BID Past Medical History Past Medical History HTN DM HLD Sleep apnea on CPAP Morbid obesity Past Surgical History Surgical History Comment None Family History Family History: FH: diabetes mellitus MOTHER Past Social History Social History Comment Lives at home with family Anne Sharp, primary care physician Quit smoking 20 years ago, smoked for 13 years of two pack per day of cigarettes Consumed about 24 pack of beers every day until 10 years ago, currently consumes whiskey occasionally with that has once a month-a couple of shots Does not consume marijuana IV drug abuse with methamphetamine until four years ago Exam Vitals: Vital Signs Date Time Temp Pulse Resp B/P (MAP) Pulse Ox O2 Delivery O2 Flow Rate FiO2 06/01/25 07:38 89 20 95 Room Air* 0 21 06/01/25 06:00 99.9 134/57 (82) General: General: Morbidly obese middle-aged man, Alert, awake, oriented, not in acute distress HEENT: PERRLA, no icterus, pallor, lymphadenopathy, carotid bruit Respiratory system: Bilateral vesicular breath sounds heard, no adventitious breath sounds CVS: S1-S2 heard, no murmurs/rubs/gallop GI: Soft, nontender, no organomegaly, no guarding/rigidity, bowel sounds present Neuro: Mental status exam: alert and consciousness, orientation, memory, speech intact - Cranial nerve test: Cranial nerves 2-12 intact - Motor system: Nutrition, Tone 3+, Power 5/5, no involuntary movements - Sensory system: Intact - Reflex testing: Biceps, triceps and knee reflexes 2+ - Cerebellar: Normal Extremities: Exfoliating rash with scales present all over the left leg, on the left medial side of the thigh that has erythematous tender blackish discoloration of necrotic material present on the ulcer. inflamed tender to touch, red and warm swelling present at the base of the left great toe Skin: Warm and dry Diagnostic Data Last Recorded Lab Results: 06/01/2545806/01/25458 Diagnostic Data: Laboratory Tests Test 05/29/25 12:30 Prothrombin Time 11.7 SECONDS (9.0-12.0) INR International Normalized Ratio 1.2 INR Activated Partial Thromboplast Time 29 SECONDS (22-32) Coagulation Comments Additional Plan Assessment: A 50-year-old male with PMH of HTN, DM, HLD presented to the ED in view of left lower extremity pain ulcer and erythema on the medial side. Patient is admitted for the evaluation management of left lower extremity cellulitis and ulcers Plan: Left lower extremity cellulitis, failed outpatient therapy Subacute nonhealing ulcer CT lower extremity: Soft tissue edema in the left lower extremity may reflect cellulitis. Cultures negative Normal leukocyte count, elevated ESR, normal procalcitonin Vancomycin has been switched to linezolid in view of high body mass index. Completed one day of vancomycin Linezolid has better tissue penetration in individuals with higher body mass index. Linezolid 600 mg p.o. q.12h (day one), IV ceftriaxone (day three) Continue these antibiotics for 10 days, we will evaluate the patient further Possible Right toe gouty arthritis, acute Follow up with uric acid Pain management p.r.n. Disposition: Continue antibiotics as per above, ID team we will continue to follow up with the patient Darnell Mckeon MD Internal Medicine, PGY 2 Agree with above note. Patient seen and examined with Dr. Mckeon. He has developed eschar at the left medial thigh area. Some residual cellulitis remains. He seems to be more bothered by the left foot/ankle at this time. Change vancomycin to linezolid with continuation of ceftriaxone. Date of Service: Jun 01, 2025 Billing Provider: RUEL VOGEL MD,DARNELL, RES Jun 01, 2025 14:16 RUEL VOGEL MD Jun 01, 2025 17:18
[2025-06-01 19:44] LABS: OCCULT BLOOD STOOL NEGATIVE (Neg)
[2025-06-01] MEDS ORDERED: VANCOMYCIN LEVEL IV ONE (23:30)
[2025-06-02] VITALS (8 sets, daily range): BP systolic 128–176; BP diastolic 62–80; PULSE 91–97; RESP 13–26; TEMP 98–98.2; O2SAT 95–98
[2025-06-02 05:43] LABS: MEAN PLATELET VOLUME 7.9 FL (7.4-10.4); RED CELL DISTRIBUTION WIDTH 15.0 % (11.5-14.5)
[2025-06-02 06:18] LABS: CREATININE 0.74 MG/DL (0.60-1.10); TOTAL CARBON DIOXIDE 28.1 MMOL/L (24-32); eCRCL 136 ML/MIN; eGFR > 90 ML/MIN
[2025-06-02] MEDS ORDERED: hydrALAZINE 20mg/ml inj. IV PRN (07:00)
--- NOTE | 2025-06-02 10:35 | PROGRESS NOTE- Residence ---
Progress Note - Resident Providers to CC Resident Creating Document: DARNELL MCKEON RES CC: RUEL VOGEL MD ~ Antibiotic Timeout Antibiotic Ordered?: Yes Subjective Patient was seen and examined at bedside. Patient's inflammation and pain at the base of right great toe is improved, patient was only able to walk to the bathroom and continues to have pain while walking. Patient has ulcer on the medial side of the thigh seems to be scabbing and falling off-healing well. Objective Vital Signs Date Time Temp Pulse Resp B/P (MAP) Pulse Ox O2 Delivery O2 Flow Rate FiO2 06/02/25 08:44 18 06/02/25 03:39 26 21 23 06/02/25 01:27 150/62 (91) 06/02/25 00:04 95 06/01/25 22:00 98.1 Room Air 06/01/25 21:27 0 Result Diagram: 06/02/25 0504 06/02/25 0504 General: Morbidly obese middle-aged man, Alert, awake, oriented, not in acute distress HEENT: PERRLA, no icterus, pallor, lymphadenopathy, carotid bruit Respiratory system: Bilateral vesicular breath sounds heard, no adventitious breath sounds CVS: S1-S2 heard, no murmurs/rubs/gallop GI: Soft, nontender, no organomegaly, no guarding/rigidity, bowel sounds present Neuro: No new focal neurological deficits Extremities: Exfoliating rash with scales present all over the left leg, on the left medial side of the thigh that has erythematous tender blackish discoloration of necrotic material present on the ulcer (improving with formation of scabs). inflamed tender to touch, red and warm swelling present at the base of the left great toe (improving) Skin: Warm and dry Coagulation Studies Laboratory Tests Test 05/29/25 12:30 Prothrombin Time 11.7 SECONDS (9.0-12.0) INR International Normalized Ratio 1.2 INR Activated Partial Thromboplast Time 29 SECONDS (22-32) Coagulation Comments Assessment Assessment A 50-year-old male with PMH of HTN, DM, HLD presented to the ED in view of left lower extremity pain ulcer and erythema on the medial side. Patient is admitted for the evaluation management of left lower extremity cellulitis and ulcers Plan Plan Left lower extremity cellulitis, failed outpatient therapy Subacute nonhealing ulcer Cultures negative Normal leukocyte count, elevated ESR, normal procalcitonin Linezolid 600 mg p.o. q.12h (day 2) for 10 days, IV ceftriaxone (day 4) Patient can continue to receive both antibiotics until discharge, can be transitioned to only linezolid 600 mg p.o. q.12h until he completes complete 10 day course Possible Right toe gouty arthritis, acute-ruled out Possible inflammatory arthritis, resolving Normal uric acid Pain management p.r.n. Disposition: Continue antibiotics as per above, outpatient follow up with PMD Darnell Mckeon MD Internal Medicine, PGY 2 Agree with above note. Pt seen and examined with Dr. Mckeon. DC home with linezolid - needs at least one more week of therapy. Date of Service: Jun 02, 2025 Billing Provider: RUEL VOGEL MD, SIVA, RES Jun 02, 2025 10:35 RUEL VOGEL MD Jun 02, 2025 10:49
[2025-06-02] MEDS ORDERED: LOSA50TA64 PO (14:55)
[2025-06-02] MEDS ORDERED: LINE600T14 PO (14:55)
[2025-06-02] MEDS ORDERED: NOR5T PO (14:55)
[2025-06-02] MEDS: metoprolol succinate 25mg (24-HOUR) SR. Tablet PO ONE (15:48)
--- NOTE | 2025-06-02 16:18 | DISCHARGE SUMMARY ---
Discharge Summary Providers to CC ~ Discharge Summary Admission Diagnosis: LLE cellulitis Hospital Course DATE OF ADMISSION: 05/29/25 DATE OF DISCHARGE: 06/02/25 Discharge Diagnosis\Comment: Cellulitis, LLE, failed outpatient management Hyponatremia Class III obesity Anemia, normocytic Chronic diastolic heart failure BRAVO History of MRSA, right foot Gait disorder, unable to ambulate independently NIDDM Hypertension Malnutrition, moderate Operations\Procedures: None Consultants: Infectious Disease [facility] Complications: None Condition on DC: Stable New Medications: Amlodipine Besylate (Amlodipine Besylate) 5 Mg Tablet 5 MG PO DAILY for 90 Days, #90 TAB Linezolid (Linezolid) 600 Mg Tablet 600 MG PO Q12H for 10 Days, #20 TAB Losartan Potassium (Losartan Potassium) 50 Mg Tablet 50 MG PO DAILY for 90 Days, #90 TAB Continued Medications: Aspirin (Aspirin EC) 81 Mg Tablet.dr 1 TAB PO DAILY Fluticasone/Vilanterol (Breo Ellipta 200-25 Mcg INH) 200 Mcg-25 Mcg/Dose Blst.w.dev 1 PUFFS PO DAILY Metformin HCl (Metformin HCl) 1,000 Mg Tablet 1 TAB PO BID Metoprolol Succinate (Metoprolol Succinate) 25 Mg Tab.sr.24h 1 TAB PO DAILY Tirzepatide (Zepbound) 5 Mg/0.5 Ml Pen.injctr 5 MG INJ Once a week Discontinued Medications: Doxycycline Monohydrate (Doxycycline Monohydrate) 100 Mg Capsule 1 CAP PO BID Enalapril Maleate (Enalapril Maleate) 20 Mg Tablet 1 TAB PO DAILY Furosemide (Furosemide) 20 Mg Tablet 1 TAB PO BID Potassium Chloride 8 MEQ* (Slow-K 8 Meq*) 8 Meq Capsule.sa 1 CAP PO DAILY, AHFU Discharge Summary: Hospital Course Richardson Vitale is a 50-year-old male with a past medical history of MRSA cellulitis of right foot, BRAVO, diastolic heart failure, class III obesity who presented to the ED with chief complaint of acute onset pain, erythema, edema of left thigh with associated symptoms of fever, chills, scabbing rash, and left foot pain x 2 weeks despite being treated with doxycycline which was prescribed by his primary care provider. Diagnostic findings were notable for CT revealing cellulitis without evidence of fluid collection. Patient was treated with empirical antibiotics and case was consulted with ID Dr. Hernandez. Patient did not experience further complications throughout the entire hospital stay and remained clinically and hemodynamically stable. Patient was seen and examined on the day of discharge. All labs, diagnostic workups, discharge plan discussed with patient in details during visit before discharge. All questions and concerns answered to the best of my professional knowledge. Patient is cleared for discharge from ID standpoint by Dr. Hernandez with oral linezolid. Patient is to be discharged with HH and to follow-up with PCP and ID Dr. Hernandez within 2 weeks. Physical Exam General: Generalized weakness, A&Ox 3, NAD HEENT: Normocephalic, PERRLA Neck: Supple, trachea midline, no JVD Chest: Clear to auscultation bilaterally Cardiovascular: RRR, S1&S2 GI: Soft and nontender Extremities: Scabbed with erythematous border in left thigh, tender, no drainage TILE CLASSIFIER: CN II-XII intact, no focal deficits Musculoskeletal: No paraspinal muscle tenderness, no muscle spasm Skin: Warm and intact *Problems/Diagnosis: (1) Wound cellulitis Status: Acute Total Time Spent on D/C: > 30 Minutes Date of Service: Jun 02, 2025 Billing Provider: LISA OLIVAS Common Visit Codes: [id number] DISCH DAY >30min LISA OLIVAS Jun 02, 2025 16:17
[2025-06-03 03:30] VITALS: RESP 26
[2025-06-03 06:23] LABS: MEAN PLATELET VOLUME 8.1 FL (7.4-10.4); RED CELL DISTRIBUTION WIDTH 15.5 % (11.5-14.5)
[2025-06-03 06:28] LABS: CREATININE 0.81 MG/DL (0.60-1.10); TOTAL CARBON DIOXIDE 28.3 MMOL/L (24-32); eCRCL 124 ML/MIN; eGFR > 90 ML/MIN
[2025-06-03 06:55] VITALS: BP 113/61; PULSE 64; RESP 18; TEMP 97.9; O2SAT 97
[2025-06-03 08:00] VITALS: RESP 16
[2025-06-03] MEDS: metoprolol succinate 25mg (24-HOUR) SR. Tablet PO SCH (09:21)
[2025-06-03 09:23] VITALS: BP_SYST 113; PULSE 64
[2025-06-03 10:00] VITALS: RESP 18
--- NOTE | 2025-06-03 10:14 | PROGRESS NOTE ---
Daily Progress Note Providers to CC ~ Antibiotic Timeout Antibiotic Ordered?: Yes Subjective Late entry for date of service for 06/02/25. No acute events overnight. Patient examined at bedside. No new complaints, not in acute distress. Patient denies chest pain, sob, palpitations, abdominal pain, n/v/d. Vss, labs unremarkable. Patient is be discharged on 06/02/25 however, due to transportation issue, discharge held. Objective Vital Signs Date Time Temp Pulse Resp B/P (MAP) Pulse Ox O2 Delivery O2 Flow Rate FiO2 06/03/25 09:25 16 06/03/25 09:23 64 06/03/25 06:55 97.9 113/61 (78) 97 Room Air 06/03/25 03:30 21 06/01/25 21:27 0 Result Diagram: 06/03/25 0456 06/03/25455 Physical Exam General: Generalized weakness, A&Ox 3, NAD HEENT: Normocephalic, PERRLA Neck: Supple, trachea midline, no JVD Chest: Clear to auscultation bilaterally Cardiovascular: RRR, S1&S2 GI: Soft and nontender Extremities: Scabbed with erythematous border in left thigh, tender, no drainage ELECTRICAL ASSEMBLY TECHNICIAN: CN II-XII intact, no focal deficits Musculoskeletal: No paraspinal muscle tenderness, no muscle spasm Skin: Warm and intact Coagulation Studies Laboratory Tests Test 05/29/25 12:30 Prothrombin Time 11.7 SECONDS (9.0-12.0) INR International Normalized Ratio 1.2 INR Activated Partial Thromboplast Time 29 SECONDS (22-32) Coagulation Comments Problem\Assessment\Plan Problems/Diagnosis: (1) Wound cellulitis Patient comes in with acute onset left thigh pain x 2 weeks, failed outpatient management with doxycycline. Assessment & Plan Cellulitis, LLE, failed outpatient management Left lower extremity erosive dermatitis Hyponatremia Class III obesity Anemia, normocytic Chronic diastolic heart failure BRAVO History of MRSA, right foot Gait disorder, unable to ambulate independently NIDDM Hypertension Malnutrition, moderate -CT shows cellulitis without evidence of fluid collection -vanco, ceftriaxone, hyper/hypoglycemic protocol, wound care consult 06/01: continued on abx, consulted ID Dr. Hernandez 06/02: cleared for discharge with oral linezolid per ID DVT/VTE prophylaxis: Heparin Code status: Full code Date of Service: Jun 02, 2025 Billing Provider: LISA OLIVAS Common Visit Codes: [id number] INP/OBS CARE(MOD) LISA OLIVAS Jun 03, 2025 10:14
== END 2025-06-03 10:20 | disposition home health service (06) | DRG 383 ==
LOC: ER 11:38 → UNDOADMIN 14:20 → ED HOLD 14:20 → ORTHO 4S 19:15 → ED HOLD 19:15 → ORTHO 4S 05-30 12:08
PROVIDERS: ADMIT Family Medicine; ATTEND Family Medicine
PROC: 5A09357 Assistance with Respiratory Ventilation, Less than 24 Consecutive Hours, Continuous Positive Airway Pressure (ICD-10-PCS; principal; 2025-05-29)
PROC: 5A09357 Assistance with Respiratory Ventilation, Less than 24 Consecutive Hours, Continuous Positive Airway Pressure (ICD-10-PCS; 2025-05-31)
PROC: 5A09357 Assistance with Respiratory Ventilation, Less than 24 Consecutive Hours, Continuous Positive Airway Pressure (ICD-10-PCS; 2025-06-01)
PROC: 5A09357 Assistance with Respiratory Ventilation, Less than 24 Consecutive Hours, Continuous Positive Airway Pressure (ICD-10-PCS; 2025-06-02)
PROC: 5A09357 Assistance with Respiratory Ventilation, Less than 24 Consecutive Hours, Continuous Positive Airway Pressure (ICD-10-PCS; 2025-06-03)
DX: L03.116 Cellulitis of left lower limb (principal); I50.33 Acute on chronic diastolic (congestive) heart failure; E44.0 Moderate protein-calorie malnutrition; E87.1 Hypo-osmolality and hyponatremia; E88.09 Other disorders of plasma-protein metabolism, not elsewhere classified; D64.9 Anemia, unspecified; E11.22 Type 2 diabetes mellitus with diabetic chronic kidney disease; I13.0 Hypertensive heart and chronic kidney disease with heart failure and stage 1 through stage 4 chronic kidney disease, or unspecified chronic kidney disease; Z68.44 Body mass index [BMI] 60.0-69.9, adult; D75.839 Thrombocytosis, unspecified; E78.5 Hyperlipidemia, unspecified; E11.65 Type 2 diabetes mellitus with hyperglycemia; E66.813 Obesity, class 3; R26.9 Unspecified abnormalities of gait and mobility; N18.9 Chronic kidney disease, unspecified; G47.33 Obstructive sleep apnea (adult) (pediatric); L30.9 Dermatitis, unspecified; Z86.14 Personal history of Methicillin resistant Staphylococcus aureus infection; Z88.1 Allergy status to other antibiotic agents; Z79.82 Long term (current) use of aspirin; Z79.899 Other long term (current) drug therapy
CPT/HCPCS: 36415; 71045; 73590; 73630; 73700; 80053; 80061; 80202; 81001; 82272; 82728; 82948; 83036; 83540; 83550; 83605; 83735; 83880; 84100; 84145; 84443; 84484; 84550; 85025; 85610; 85651; 85730; 86140; 87040; 87081; 87088; 93005; 94660; 94760; 97116; 97161; 97530; 99285; A6258; G0378; J0696; J1644; J1815; J3373; J3374; J7030